=== PATIENT | female | born 1985 | race Caucasian/White ===

== ENCOUNTER 2020-05-01 23:32 | Inpatient (IN) | payer MEDICAID, SELFPAY ==
[2020-05-02] VITALS (12 sets, daily range): BP systolic 96–130; BP diastolic 52–91; PULSE 51–97; RESP 16–18; TEMP 35.8–36.7; O2SAT 97–99; BMI 31.6
--- NOTE | 2020-05-02 00:18 | ED_ITS ---
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 pain Pertinent past history: other (s/p at home 3 hour labor no PROM (water broke at delivery) GBS + no antibiotics) Onset (ago): day(s) (started yesterday but much worse today) Pain Consistency: constant Location: RLQ and suprapubic Severity: moderate Quality: cramping and aching Radiation: none Migration to: no migration Exacerbating factors: movement Relieving factors: nothing Associated symptoms: nausea and other (noted gush of darker blood yesterday x 1 no clots and did not happen again) Related Data Allergies Allergy/AdvReac Type Severity Reaction Status Date / Time No Known Allergies Allergy Unverified 03/22/20 19:33 [No Known Allergies*] eggs, dairy, wheat Allergy Unknown stomach Uncoded 11/22/19 00:00 upset Review of Systems Review of Systems Constitutional : No Weight loss, No Fever, No Chills ENT/Mouth : No sore throat, No Rhinorrhea Eyes: No Swelling, No Redness Cardiovascular : No Chest Pain, No SOB, NoEdema Respiratory : No Cough, No Sputum, No Wheezing Gastrointestinal : Positive Nausea, no Vomiting, no Diarrhea, positive abdominal Pain, No Hematochezia, No Melena Genitourinary : No Dysuria, No Urinary Frequency, No Hematuria, No Urgency , did have episode of darker brown blood ysterday but no clots seen and only 1 episode Musculoskeletal : No joint pain, No Myalgias, No Joint Swelling Skin : No Skin Lesions, No rash Neuro : No Weakness, No Numbness, No Dizziness, No Headache Psych : No Anxiety/Panic, No Depression Heme/Lymph: No Bruising, No Lymphadenopathy Endocrine : No Polyuria, No Polydipsia All other systems reviewed and are negative. Physical Exam Vital Signs: Vital Signs: Vital Signs Temp Pulse Resp BP Pulse Ox 05/02/20 02:43 98.1 F 67 18 130/91 H 05/02/20 02:00 98.0 F 68 18 122/81 05/02/20 00:29 98.0 F 60 18 115/71 98 Body Mass Index 31.6 Appearance: Alert. Oriented X3. No acute distress. Eyes: Pupils equal, round and reactive to light. ENT: Pharynx normal. Neck: Normal inspection. Neck supple. CVS: Normal heart rate and rhythm. Pulses normal. Respiratory: No respiratory distress. Breath sounds normal. Abdomen: Soft and moderate RLQ ttp, no rebound or guarding Skin: Skin warm and dry. Normal skin color. Normal skin turgor. Extremities: No lower extremity edema. No calf ttp Neuro: Oriented X 3. No motor deficit. No sensory deficit. Course Course Course Narrative: at this time no signs of sepsis, + appendicitis, zosyn ordered, surgery to admit MDM - Abdominal Pain MDM Narrative Medical decision making narrative: 34 yo female s/p home 3 hours labor (water broke at delivery) no PROM on 04/20 here with RLQ pain and nausea, she was GBS + but it was vaginal and her pain is mostly RLQ - at this time will need labs, IVF, CT scan patient REFUSES contrast aware it is indicated for infection and we could miss something she still refuses, dispo per results and findings, endometritis seems unlikely given vaginal delivery and RLQ pain Lab Data Result diagrams: 05/02/20 01:04 05/02/20 01:04 Labs: Lab Results 05/02/20 05/02/20 05/02/20 Range/Units 01:04 01:04 01:04 WBC 7.5 (4.8-10.8) X10*3/uL RBC 4.43 (4.20-5.50) X10*6/uL Hgb 11.4 L (12.0-16.0) g/dl Hct 36.3 L (37-47) % MCV 81.9 (80-98) fL MCH 25.7 L (27.0-33.0) pg MCHC 31.4 (31.0-35.0) g/dl RDW 15.4 (11.0-16.0) % Plt Count 289 (160-400) X10*3/uL MPV 11.1 (9.4-12.3) fL Immature Gran % (Auto) 0.1 (0.0-0.4) % Neut % (Auto) 61.9 (45-73) % Lymph % (Auto) 26.2 (20-40) % [place] % (Auto) 9.0 (2-11) % Eos % (Auto) 2.3 (0-4) % Baso % (Auto) 0.5 (0-2) % Lymph # (Auto) 2.0 (1.2-4.9) X10*3/uL [place] # (Auto) 0.7 (0.1-1.2) X10*3/uL Eos # (Auto) 0.2 (0.0-0.4) X10*3/uL Baso # (Auto) 0.0 (0.0-0.2) X10*3/uL Abs Immat Gran (auto) 0.01 (0.00-0.03) X10*3/uL Absolute Neuts (auto) 4.6 (2.0-8.3) X10*3/uL Absolute Nucleated RBC 0.000 (0.0-0.012) X10*3/uL Nucleated RBC % (auto) 0.0 (0.0-0.2) /100WBC PT 11.7 (10.8-13.0) SEC INR 1.0 (0.9-1.1) APTT 34.8 (24.1-38.0) SEC Sodium 140 (135-145) mmol/L Potassium 4.2 (3.3-5.1) mmol/l Chloride 109 H (96-108) mmol/L Carbon Dioxide 21 L (22-29) mmol/L Anion Gap 14 (12-20) BUN 12 (9-16) mg/dL Creatinine 0.67 (0.5-1.4) mg/dL Estim Creat Clear Calc 130.6 Estimated GFR > 60 Random Glucose 84 (60-115) mg/dL Lactic Acid (0.5-2.0) mmol/L Calcium 8.7 (8.4-10.2) mg/dL Magnesium 2.4 (1.6-2.6) mg/dL Total Bilirubin 0.5 (0.0-1.0) mg/dL Direct Bilirubin 0.2 (0.0-0.5) mg/dL AST 17 (5-31) U/L ALT 21 (0-31) U/L Alkaline Phosphatase 96 (39-117) U/L Total Protein 6.9 (6.5-8.0) g/dL Albumin 4.0 (3.5-5.0) g/dL Lipase 40 (8-78) U/L Urine Color Urine Appearance Urine pH (5.0-8.0) Ur Specific [place] (1.005-1.025) Urine Protein (NEG-TRACE) MG/DL Urine Glucose (UA) (NEG) MG/DL Urine Ketones (NEG) MG/DL Urine Blood (NEG) Urine Nitrite (NEG) Ur Leukocyte Esterase (NEG) Urine RBC (0) /HPF Urine WBC (0-4) /HPF Ur Squamous Epith Cells /LPF Urine Bacteria /LPF Coronavirus (PCR) (Negative) 05/02/20 05/02/20 05/02/20 Range/Units 01:04 03:04 03:04 WBC (4.8-10.8) X10*3/uL RBC (4.20-5.50) X10*6/uL Hgb (12.0-16.0) g/dl Hct (37-47) % MCV (80-98) fL MCH (27.0-33.0) pg MCHC (31.0-35.0) g/dl RDW (11.0-16.0) % Plt Count (160-400) X10*3/uL MPV (9.4-12.3) fL Immature Gran % (Auto) (0.0-0.4) % Neut % (Auto) (45-73) % Lymph % (Auto) (20-40) % [place] % (Auto) (2-11) % Eos % (Auto) (0-4) % Baso % (Auto) (0-2) % Lymph # (Auto) (1.2-4.9) X10*3/uL [place] # (Auto) (0.1-1.2) X10*3/uL Eos # (Auto) (0.0-0.4) X10*3/uL Baso # (Auto) (0.0-0.2) X10*3/uL Abs Immat Gran (auto) (0.00-0.03) X10*3/uL Absolute Neuts (auto) (2.0-8.3) X10*3/uL Absolute Nucleated RBC (0.0-0.012) X10*3/uL Nucleated RBC % (auto) (0.0-0.2) /100WBC PT (10.8-13.0) SEC INR (0.9-1.1) APTT (24.1-38.0) SEC Sodium (135-145) mmol/L Potassium (3.3-5.1) mmol/l Chloride (96-108) mmol/L Carbon Dioxide (22-29) mmol/L Anion Gap (12-20) BUN (9-16) mg/dL Creatinine (0.5-1.4) mg/dL Estim Creat Clear Calc Estimated GFR Random Glucose (60-115) mg/dL Lactic Acid 0.5 (0.5-2.0) mmol/L Calcium (8.4-10.2) mg/dL Magnesium (1.6-2.6) mg/dL Total Bilirubin (0.0-1.0) mg/dL Direct Bilirubin (0.0-0.5) mg/dL AST (5-31) U/L ALT (0-31) U/L Alkaline Phosphatase (39-117) U/L Total Protein (6.5-8.0) g/dL Albumin (3.5-5.0) g/dL Lipase (8-78) U/L Urine Color STRAW Urine Appearance CLEAR Urine pH 6.0 (5.0-8.0) Ur Specific [place] 1.015 (1.005-1.025) Urine Protein NEG (NEG-TRACE) MG/DL Urine Glucose (UA) NEG (NEG) MG/DL Urine Ketones NEG (NEG) MG/DL Urine Blood 3+ H (NEG) Urine Nitrite NEG (NEG) Ur Leukocyte Esterase TRACE H (NEG) Urine RBC 0-2 (0) /HPF Urine WBC 0-2 (0-4) /HPF Ur Squamous Epith Cells 1+ /LPF Urine Bacteria TRACE /LPF Coronavirus (PCR) NEGATIVE (Negative) Critical Care Time Critical Care Time Critical Care Time: Yes Total Critical Care Time: 35 Attestation: IVF, CT scan, consult to surgery, admit for appendicitis. I personally attest to this time spent taking care of the patient Discharge Plan Discharge Clinical Impression: Acute appendicitis Qualifiers: Acute appendicitis type: with localized peritonitis Appendicitis gangrene presence: without gangrene Appendicitis perforation presence: without perforation Appendicitis abscess presence: without abscess Qualified Code(s): K35.30 - Acute appendicitis with localized peritonitis, without perforation or gangrene Patient Disposition: Admitted As Inpatient [facility] Past Medical History Attestation statement: The following information was validated with the patient. Medical History No known health problems Social History Social History Alcohol intake: never Smoking Status: Never smoker Smoked in Last 30 Days: No Advance Directives: No
--- NOTE | 2020-05-02 00:29 | CT_ITS ---
EXAMINATION: CT ABDOMEN AND PELVIS WITHOUT CONTRAST CLINICAL INFORMATION: Right lower quadrant pain COMPARISON: None TECHNIQUE: Multidetector volumetric imaging was performed from the superior aspect of the liver through the pubic symphysis. Sagittal and coronal reformatted images were obtained on the technologist's workstation. This CT examination was performed using dose optimization techniques as appropriate, variously including the following: *Automated exposure control *Adjustment of mA and/or kV according to patient size (this includes techniques or standardized protocols for targeted exams where dose is matched to indication/reason for exam; i.e. extremities or head) *Use of iterative reconstruction technique DLP: 688 mGy-cm FINDINGS: LUNG BASES: The visualized lung bases are unremarkable. LIVER, GALLBLADDER, AND BILIARY TREE: The liver is normal in size, shape, and attenuation. No focal hepatic lesion or biliary ductal dilatation is present. The gallbladder is unremarkable with no evidence of radiopaque gallstones, gallbladder wall thickening, or obvious pericholecystic inflammatory changes. PANCREAS: Unremarkable. SPLEEN: Unremarkable. ADRENAL GLANDS: Unremarkable. KIDNEYS AND URETERS: The kidneys are normal in size, shape, and attenuation. No hydronephrosis, hydroureter, or calculi seen. No perinephric stranding. BLADDER: Unremarkable. GASTROINTESTINAL TRACT: The stomach is unremarkable. Normal caliber small bowel. There is no obstruction. Fecalization is seen at the distal ileum, suggesting slow transit. Inflammatory changes are seen at the cecum, surrounding the base of the appendix. The appendix is dilated approximately measuring 1.2 cm as seen on series 6 image 31. There is no free air. There is no fluid collection. The remainder of the colon is unremarkable. ABDOMINAL WALL: Fat-containing umbilical hernia. Small right periumbilical hernia and small supraumbilical hernias also containing fat. Mild inflammation of the right periumbilical hernia. LYMPH NODES: Normal. VASCULAR: Unremarkable. PELVIC VISCERA: The uterus and adnexa are unremarkable. OSSEOUS STRUCTURES: No acute or suspicious osseous abnormality. CT/CT abdomen pelvis wo con IMPRESSION: Abnormal appearance of the appendix with dilatation at the base of the appendix and adjacent inflammation of the fat, consistent with appendicitis.
[2020-05-02] MEDS: 0.9 % Sodium Chloride 1,000 ML 999 ML IVCONT (01:10)
[2020-05-02 01:12] LABS: Basophils Percent Auto 0.5 % (0-2); Eosinophils Absolute Auto 0.2 X10*3/uL (0.0-0.4); Eosinophils Percent Auto 2.3 % (0-4); Hematocrit 36.3 % (37-47); Hemoglobin 11.4 g/dl (12.0-16.0); Imm Gran Abs Auto 0.01 X10*3/uL (0.00-0.03); Imm Gran Pct Auto 0.1 % (0.0-0.4); Lymphocytes Percent Auto 26.2 % (20-40); MANUAL DIFF FLAG NO; Mean Corpuscular HGB Conc 31.4 g/dl (31.0-35.0); Mean Corpuscular Hemoglobin 25.7 pg (27.0-33.0); Mean Corpuscular Volume 81.9 fL (80-98); Mean Platelet Volume 11.1 fL (9.4-12.3); Monocytes Absolute Auto 0.7 X10*3/uL (0.1-1.2); Neutrophils Absolute Auto 4.6 X10*3/uL (2.0-8.3); Neutrophils Percent Auto 61.9 % (45-73); Platelet Count 289 X10*3/uL (160-400); Red Blood Count 4.43 X10*6/uL (4.20-5.50); Red Cell Distribution Width 15.4 % (11.0-16.0); White Blood Count 7.5 X10*3/uL (4.8-10.8)
--- NOTE | 2020-05-02 01:13 | PC.NURSE ---
20g right ac pt neftaly well no complications, labs sent. pt refused pain medication and nausea medication at this time.
[2020-05-02 01:20] LABS: Prothrombin Time 11.7 SEC (10.8-13.0)
[2020-05-02 01:22] LABS: Partial Thromboplastin Time 34.8 SEC (24.1-38.0)
[2020-05-02 01:37] LABS: Lactic Acid 0.5 mmol/L (0.5-2.0)
[2020-05-02 01:41] LABS: Alanine Aminotransferase 21 U/L (0-31); Alkaline Phosphatase 96 U/L (39-117); Anion Gap 14 (12-20); Aspartate Amino Transferase 17 U/L (5-31); Bilirubin Direct 0.2 mg/dL (0.0-0.5); Bilirubin Total 0.5 mg/dL (0.0-1.0); Blood Urea Nitrogen 12 mg/dL (9-16); Calcium 8.7 mg/dL (8.4-10.2); Carbon Dioxide 21 mmol/L (22-29); Chloride 109 mmol/L (96-108); Creatinine Clr Calc Pharmacy 130.6; Estimated Glomerular Filt Rate > 60; Glucose Random 84 mg/dL (60-115); Lipase 40 U/L (8-78); Magnesium 2.4 mg/dL (1.6-2.6); Potassium 4.2 mmol/l (3.3-5.1); Sodium 140 mmol/L (135-145); Total Protein 6.9 g/dL (6.5-8.0)
--- NOTE | 2020-05-02 02:22 | PC.NURSE ---
pt is breast feeding the baby at this time. ok with paras huertas and dr darnell for pt to feed in her car vs bringing a 2 week old into the hospital.
--- NOTE | 2020-05-02 02:54 | PC.NURSE ---
pt returned from breast feeding her new born. pt has ivf infusing.
[2020-05-02 03:13] LABS: Glucose Urine UA NEG (NEG); Leukocyte Esterase Urine TRACE (NEG); Nitrite Urine NEG (NEG); Specific Gravity - Urine 1.015 (1.005-1.025); Urine Blood 3+ (NEG); Urine Ketones NEG (NEG); Urine Protein NEG (NEG-TRACE)
[2020-05-02 03:14] LABS: Appearance Urine CLEAR; Color Urine STRAW
[2020-05-02] MEDS: Piperacillin Sodium/Tazobactam 3.375 GM in 0.9 % Sodium Chloride 50 ML IV ×3 (03:17→18:30)
[2020-05-02 03:38] LABS: Bacteria Urine TRACE /LPF; RBC Urine 0-2 /HPF (0); Squamous Epithelial Cell Urine 1+ /LPF; WBC Urine 0-2 /HPF (0-4)
[2020-05-02 04:08] LABS: SARS COV2 PCR INHOUSE NEGATIVE (Negative)
--- NOTE | 2020-05-02 07:00 | PC.NURSE ---
RECEIVED REPORT FROM MALCOLM GLASS PT IS CURRENTLY RESTING IN THE STRETCHER WITH THE AT HER SIDE, PT IS BREAST FEEDING THE BABY, PT DOES NOT WANT ANY MEDICATIONS AT THIS TIME. PT IS AWAITING SURGERY CONSULT. ALSO AT BEDSIDE.
--- NOTE | 2020-05-02 08:24 | PM.HPGS ---
History of Present Illness History of Present Illness Chief complaint: ABD PAIN Narrative: Alison Oliva is a 34 year old female who is about 2 weeks following home delivery and who developed right lower quadrant abdominal pain about a day and a half ago. The pain was persistent and severe. She reports that it seems to be somewhat better now. She has been taking only acetaminophen for pain. She does not report fever or chills. Because of the persistent severe pain, she came to the emergency room last night for further evaluation. White blood count was normal at 7.2. A CT scan of the abdomen and pelvis was obtained and was consistent with early uncomplicated appendicitis. Review of Systems Constitutional: Constitutional: Denies chills and Denies fever(s) Cardiovascular: Cardiovascular: Denies chest pain, Denies palpitations and Denies dyspnea Respiratory: Respiratory: Denies cough and Denies dyspnea Gastrointestinal: Gastrointestinal: Reports as per HPI Endocrine: Endocrine: Denies palpitations PMFSH Past Medical History Medical History No known health problems Social History Social History Alcohol intake: never Smoking Status: Never smoker Smoked in Last 30 Days: No Advance Directives: No Meds Allergies Allergy/AdvReac Type Severity Reaction Status Date / Time No Known Allergies Allergy Unverified 03/22/20 19:33 [No Known Allergies*] eggs, dairy, wheat Allergy Unknown stomach Uncoded 11/22/19 00:00 upset Home Medications Medication Instructions Recorded Confirmed Type No Known Home Meds 05/02/20 05/02/20 History Physical Exam Vital Signs: Vital Signs: Vital Signs Temp Pulse Resp BP Pulse Ox 05/02/20 06:00 98.1 F 51 16 98 05/02/20 04:00 98.1 F 97 16 108/69 98 05/02/20 02:43 98.1 F 67 18 130/91 H 05/02/20 02:00 98.0 F 68 18 122/81 05/02/20 00:29 98.0 F 60 18 115/71 98 Body Mass Index 31.6 Const: General: cooperative, no acute distress and alert HENMT: Head: Yes normocephalic and Yes atraumatic Eyes: General: appearance normal, both eyes and all related structures Neck: Neck: Yes full ROM and Yes trachea midline Resp: Effort & Inspection: normal respiratory effort Auscultation: clear to auscultation bilaterally Cardio: Rate: regular rate Rhythm: regular rhythm GI: Other: Soft, nondistended, focally tender right lower quadrant with mild rebound, no palpable masses Rectal Exam - Female: deferred Skin: Other: Normal color, warm and dry Psych: Insight: Good insight present (Psych) Judgement: Good judgement present (Psych) Results Results Labs: Short CBC 05/02/20 Range/Units 01:04 WBC 7.5 (4.8-10.8) X10*3/uL Hgb 11.4 L (12.0-16.0) g/dl Hct 36.3 L (37-47) % Plt Count 289 (160-400) X10*3/uL BMP 05/02/20 01:04 Sodium 140 Potassium 4.2 Chloride 109 H Carbon Dioxide 21 L BUN 12 Creatinine 0.67 Calcium 8.7 Liver Function 05/02/20 Range/Units 01:04 Total Bilirubin 0.5 (0.0-1.0) mg/dL Direct Bilirubin 0.2 (0.0-0.5) mg/dL AST 17 (5-31) U/L ALT 21 (0-31) U/L Alkaline Phosphatase 96 (39-117) U/L Albumin 4.0 (3.5-5.0) g/dL Urine 05/02/20 Range/Units 03:04 Urine Color STRAW Urine Appearance CLEAR Urine pH 6.0 (5.0-8.0) Ur Specific [place] 1.015 (1.005-1.025) Urine Protein NEG (NEG-TRACE) MG/DL Urine Glucose (UA) NEG (NEG) MG/DL Assessment and Plan (1) Acute appendicitis: Qualifiers: Acute appendicitis type: with localized peritonitis Appendicitis abscess presence: without abscess Appendicitis gangrene presence: without gangrene Appendicitis perforation presence: without perforation Qualified Code(s): K35.30 - Acute appendicitis with localized peritonitis, without perforation or gangrene Status: Acute This is a 34-year-old female presenting with history, exam and imaging findings consistent with early acute appendicitis. We discussed treatment options including a trial of antibiotic therapy at, and surgery, laparoscopic or open appendectomy. We reviewed that antibiotic therapy is successful initially about 80% of the time and that when successful, recurrent appendicitis can occur. We discussed the technique of laparoscopic appendectomy and did potential need to convert to open appendectomy and reviewed risks of either procedure at which include error in diagnosis, infection, bleeding, DVT and PE, appendiceal stump leak. She has chosen initial treatment with antibiotic therapy. She understands that she will be observed in the hospital and that if there is any worsening or if there is no significant improvement over the next 24 hours or so, surgery will be recommended.
--- NOTE | 2020-05-02 08:39 | PC.NURSE ---
VITAL SIGNS DIFFERED, PT, AND SLEEPING PT'S COLOR IS PINK SKIN DRY
--- NOTE | 2020-05-02 10:39 | PC.NURSE ---
PT RESTING BREAST FEEDING HER NEW BORN ON THE RIGHT SIDE, BP SLIGHTLY LOWER DUE TO BEING ON HER SIDE 96/59, PT STILL DOES NOT WANT ANYTHING FOR PAIN CONTROL. PT WILL BE ADMITTED THROUGH SURGERY
[2020-05-02] MEDS: Dextrose 5 % and Lactated Ring 1,000 ML 100 ML IVCONT (11:18)
--- NOTE | 2020-05-02 13:00 | PC.NURSE ---
called med/surg awaiting call back for report
--- NOTE | 2020-05-02 13:21 | PC.NURSE ---
report given to med/medical/surgery registered nurse, but the nurse requested that we wait to sent the pt upstairs until the returns to the ed
--- NOTE | 2020-05-02 14:43 | PC.NURSE ---
fuad rn at bedside speaking to pt at this time
--- NOTE | 2020-05-02 15:15 | PC.NURSE ---
Spoke with patient and spouse about request to have mom and dad board with 10 day old during patient's hospitalization for possible appendicitis. This sign writer letterer or painter shared concern for health of 10 day old given hospital setting and child less than 3 months of age being prone to infection/sepsis. Both patient and spouse verbalize (+) understanding of risk of infection to while in an acute care setting. However, patient expressing concern about baby's feeding needs. This sign writer letterer or painter offered option of supporting patient in pumping breastmilk and facilitating spousal pick ups to support breastmilk feeding at home. Patient appreciative of offer but shared her concern that the will likely not accept a bottle nipple as none of her previous 3 children did and it caused significant difficulty for them. She would like to avoid such issues with this baby. Various other options discussed with goal of supporting this family, including possible transfer to another facility. However, similar challenges would likely be faced and has the capacity to care for the patient. Patient prefers to stay at . Patient is very naturopathic and was thrilled to have had a home delivery with this child, as she wanted to avoid the hospital. Patient expresses sadness and frustration that she is ending up hospitalized after all. Emotional support provided to patient and spouse with (+) effect, patient smiling and engaged. This sign writer letterer or painter consulted Karrie Shanks RN Director of the [facility], who was able to provide patient with a hospital grade double breast pump as patients breasts were noted to be engorged despite infant having latched and eaten well. The patient demonstrated good use of the pump and was able to pump 6 oz of breastmilk with reported relief of engorged feeling in breasts. Meanwhile, this sign writer letterer or painter was able to coordinate an isolated admission for this patient, her spouse, and the . This option was presented to the patient and spouse and they graciously accepted. Again, the risk of infection to the related to being in an acute care setting of a hospital was reviewed with both patents in the presence of this sign writer letterer or painter and Karrie Shanks RN. Both patients verbalized a (+) understanding of risk of illness to the and clearly verbalize they will accept the risk in the presence of this sign writer letterer or painter and Karrie Shanks RN. With the plan for the patient's spouse and to board with the patient for her hospital stay, a bassinet was obtained for the child's safety. Both parents were educated by Karrie and this sign writer letterer or painter that the baby should not be allowed to sleep in the hospital bed with either parent due to the risk of fall/SIDS. Both parents verbalized (+) understanding. Dad was also educated to minimize in and outs from the room so as to facilitate isolation with the goal of infection control. Both patient and spouse verbalized (+) understanding. The dietary office and the patient/spouse were notified that we will provide a second meal tray for the spouse during the patient's hospital stay, so as to limit entry and exit of the spouse from the room. Both patient and spouse report they have enough diapers, clothing, and care items for the baby so as not to require anything from the hospital or need to go home for anything. It was explained to both parents that the baby cannot be left alone in the care of mom as she is an active patient at and should she experience an emergency, we need a care provider present for the baby. Both parents verbalized (+) understanding. maritime officer Cuca Barney, Renetta Watson, Fide Guevara, Karrie Shanks, Chapo Manning, and Henrique Montana are aware of the plan of care for this patient and family. Of note, the patient initially declined surgical options but after conversing with this sign writer letterer or painter and Karrie Shanks, MARIA LUISA, she is asking appropriate plan of care questions and may consider operative intervention as a means to shortening her length of stay. This sign writer letterer or painter offered to call surgical team to speak with patient at this time. Patient declined stating she would like to think about things a bit longer and will plan to discuss plan of care when surgery staff does afternoon rounds (planned as per patient). This sign writer letterer or painter provided patient and with my business card and cell phone number. They are encouraged to call with any questions or needs and verb (+) understadning. Full report given to Navin Solis RN supervisor slashing department and Fide Guevara collection support specialist S3. Plan for Fide Guevara to advocate for an OBGYN consult with the surgical team. This sign writer letterer or painter will check in on patient and family during their stay.
--- NOTE | 2020-05-02 17:40 | PM.EVENT ---
Event Note Event Note: She continues to reports decreasing pain, RLQ. Hungry. Alert, NAD Abdomen is soft, focal tenderness to deep palpation inferior RLQ Discussed options for continued antibiotic treatment vs proceeding with surgery with pt. and . She prefers to continue antibiotic therapy at this time. Will advance to regular diet, then keep NPO after midnight for reassessment in early AM. Also discussed OB eval as she had a recent home delivery. She does not feel it is needed, but agrees and requests Ping De Leon CNM, if she is available.
[2020-05-03] VITALS (17 sets, daily range): BP systolic 108–130; BP diastolic 52–82; PULSE 50–87; RESP 12–20; TEMP 36.1–36.8; O2SAT 94–99; BMI 31.6
[2020-05-03] MEDS: Piperacillin Sodium/Tazobactam 3.375 GM in 0.9 % Sodium Chloride 50 ML IV ×2 (00:22→06:32)
[2020-05-03] MEDS: Dextrose 5 % and Lactated Ring 1,000 ML 100 ML IVCONT ×2 (00:23→10:10)
[2020-05-03 06:39] LABS: MANUAL DIFF FLAG NO
[2020-05-03 06:50] LABS: Basophils Percent Auto 0.7 % (0-2); Eosinophils Absolute Auto 0.2 X10*3/uL (0.0-0.4); Eosinophils Percent Auto 3.3 % (0-4); Hematocrit 36.8 % (37-47); Hemoglobin 11.5 g/dl (12.0-16.0); Imm Gran Abs Auto 0.01 X10*3/uL (0.00-0.03); Imm Gran Pct Auto 0.2 % (0.0-0.4); Lymphocytes Absolute Auto 1.6 X10*3/uL (1.2-4.9); Lymphocytes Percent Auto 26.4 % (20-40); Mean Corpuscular HGB Conc 31.3 g/dl (31.0-35.0); Mean Corpuscular Hemoglobin 25.8 pg (27.0-33.0); Mean Corpuscular Volume 82.5 fL (80-98); Mean Platelet Volume 11.2 fL (9.4-12.3); Monocytes Absolute Auto 0.6 X10*3/uL (0.1-1.2); Monocytes Percent Auto 9.3 % (2-11); Neutrophils Absolute Auto 3.7 X10*3/uL (2.0-8.3); Neutrophils Percent Auto 60.1 % (45-73); Platelet Count 260 X10*3/uL (160-400); Red Blood Count 4.46 X10*6/uL (4.20-5.50); Red Cell Distribution Width 15.2 % (11.0-16.0); White Blood Count 6.1 X10*3/uL (4.8-10.8)
--- NOTE | 2020-05-03 08:18 | PM.PNGS ---
Subjective Subjective Interval history: Had RLQ pain and tenderness overnight. Occasionally radiating to her right lower back. Wants to proceed with surgery. Last PO intake 8PM yesterday. <IMTIAZ Ludwig Last Filed: 05/03/20 08:23> Physical Exam Vital Signs: Vital Signs: Vital Signs Temp Pulse Resp BP Pulse Ox 05/03/20 06:51 97.1 F 58 18 117/77 99 05/03/20 04:00 18 05/03/20 00:00 97.5 F 67 17 110/52 L 97 05/02/20 23:31 97.5 F 66 17 110/52 L 98 05/02/20 19:53 96.5 F L 60 18 110/79 97 05/02/20 16:37 98.1 F 60 18 116/74 99 05/02/20 16:00 18 05/02/20 14:59 59 18 126/80 98 05/02/20 13:02 16 05/02/20 10:38 74 16 96/59 L 98 Body Mass Index 31.6 <Tara Durbin PA-C Last Filed: 05/03/20 08:23> Const: General: comfortable, no acute distress and alert <IMTIAZ Ludwig Last Filed: 05/03/20 08:23> Orientation/consciousness: patient oriented x3 <IMTIAZ Ludwig Last Filed: 05/03/20 08:23> Eyes: Sclerae: sclerae normal <IMTIAZ Ludwig Last Filed: 05/03/20 08:23> Resp: Effort & Inspection: normal respiratory effort <IMTIAZ Ludwig Last Filed: 05/03/20 08:23> GI: Palpation (GI): Soft to palpation and Tenderness to palpation present (GI) in the RLQ; with no rebound tenderness and Rovsing's sign negative <IMTIAZ Ludwig Last Filed: 05/03/20 08:23> Skin: Other: normal color, warm and dry <IMTIAZ Ludwig Last Filed: 05/03/20 08:23> Neuro: General: patient oriented x3 <Tara Durbin PA-C - Last Filed: 05/03/20 08:23> Progress Note: A&P Assessment and plan (1) Acute appendicitis: Status: Acute <IMTIAZ Ludwig Last Filed: 05/03/20 08:23> Assessment and Plan: Initially felt improved with nonoperative management but now with more RLQ pain and tenderness. Wants to proceed with surgery. VSS, afebrile. WBC remains normal. Will add onto OR schedule for today for laparoscopic possible open appendectomy- risks discussed again today with patient by Dr. Tate. Patient agrees to proceed. <Tara Durbin PA-C - Last Filed: 05/03/20 08:23> Fall Risk Details Current Medications: Current Medications Generic Name Dose Route Start Last Admin Trade Name Freq PRN Reason Stop Dose Admin Acetaminophen 650 mg 05/02/20 13:15 Acetaminophen 325 Mg Tablet PO Q6H PRN Pain, Mild (Pain Scale 1-3) Dextrose/Lactated Ringer's 1,000 mls @ 100 mls/hr 05/02/20 10:50 05/03/20 00:23 D5lr IVCONT 100 mls/hr .Q10H RACHEL Administration Piperacillin Sod/Tazobactam 50 mls @ 100 mls/hr 05/02/20 18:00 05/03/20 06:32 Sod 3.375 gm/ Sodium Chloride IV 100 mls/hr Q6H RACHEL Administration Cefotetan Disodium 2 gm in 50 mls @ 100 mls/hr 05/03/20 12:00 Cefotan IV 05/03/20 12:29 PREOP ONE Morphine Sulfate 4 mg 05/02/20 13:15 Morphine Sulfate 4 Mg/Ml Cartridge IVPUSH Q3H PRN Pain, Severe (Pain Scale 7-10) Ondansetron HCl 4 mg 05/02/20 13:15 Ondansetron Hcl 4 Mg/2 Ml Vial IVPUSH Q8H PRN Nausea and Vomiting Pharmacy Consult 1 each 05/02/20 02:43 Consult Rx Perform Med Rec MISCELLANE ONCE PRN Consult order Sodium Chloride 3 ml 05/02/20 13:15 05/03/20 03:20 0.9 % Sodium Chloride Flush 3 Ml Syringe IVFLUSH Not Given QSHIFT RACHEL <IMTIAZ Ludwig Last Filed: 05/03/20 08:23> Time Spent With Patient Time: Total time spent is greater than 50% in coordination of care (as documented) at patient's floor/unit and/or counseling patient: <IMTIAZ Ludwig Last Filed: 05/03/20 08:23> Time with patient: 15 - 24 minutes <IMTIAZ Ludwig Last Filed: 05/03/20 08:23>
--- NOTE | 2020-05-03 10:39 | P.CONOB_ITS ---
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 Patient has no fever no vaginal bleeding patient is 10 days post is breast feeding delivered at home smooth with no complication no history of per own rupture of membranes hemorrhage or retained placenta. 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 The possibility of endometritis is unlikely for the following reasons: no leukocytosis, fever, no uterine tenderness, no history of hemorrhage & CT scan showed normal uterus and abnormal appendix. In case there is an element of endometritis the recommended treatment for endometritis is clindamycin and gentamicin, but Zosyn is one of the alternative antibiotic options . If the patient does not improve after appendectomy will reconsider the diagnosis of endometritis and possibly switching antibiotics. Meanwhile vitamin 1 tablet p.o. q.d. and offered the patient a visit in our office patient will call and arrange for the appointment.
--- NOTE | 2020-05-03 11:51 | MHC.SHP ---
Pre-Procedural Eval Section A The patient is an INPATIENT: Yes Section B Chief Complaint: Acute Appendicitis Allergies: Allergies Allergy/AdvReac Type Severity Reaction Status Date / Time No Known Allergies Allergy Verified 05/02/20 17:02 [No Known Allergies*] eggs, dairy, wheat Allergy Unknown stomach Uncoded 05/02/20 17:01 upset Plan Diagnosis/Plan: Unchanged Patient has been examined and remains a candidate for the planned procedure
--- NOTE | 2020-05-03 12:18 | PC.NURSE ---
moderate amount of brown blodd on her mykel pad. post 2 weeks and is breast feeding. anesthesia aware.
--- NOTE | 2020-05-03 12:22 | P.CONAN_ITS ---
[facility] Past Medical History Medical History No known health problems Social History Social History Household Members: Family Housing: House Do you presently have visiting nurse or other home services: No Alcohol intake: never Smoking Status: Never smoker Smoked in Last 30 Days: No Use of substances other than those prescribed or required for medical reasons: No Have you been hit, kicked, punched, or otherwise hurt by someone within the past year? If so, by whom?: No Do you feel safe in your current relationship?: Yes Is there a partner from a previous relationship who is making you feel unsafe now?: No Are you made to feel afraid or neglected: No Advance Directives: No Do you have thoughts of harming others: None Do you have a plan to hurt others: No Plan Recently lost weight without trying: No Meds Allergies Allergy/AdvReac Type Severity Reaction Status Date / Time No Known Allergies Allergy Verified 05/02/20 17:02 [No Known Allergies*] eggs, dairy, wheat Allergy Unknown stomach Uncoded 05/02/20 17:01 upset Home Medications Medication Instructions Recorded Confirmed Type No Known Home Meds 05/02/20 05/02/20 History Exam Exam Date and Time: May 03, 2020 1222 Height,Weight and Vital Signs: Height 5 ft 5 in Weight 86.183 kg Last Vital Signs Temp 98.2 F 05/03/20 12:00 Pulse 62 05/03/20 12:00 Resp 16 05/03/20 12:00 BP 130/82 05/03/20 12:00 Pulse Ox 97 05/03/20 12:00 Pertinent Lab Results Pertinent Lab Results: Laboratory Tests 05/02/20 05/02/20 05/02/20 01:04 01:04 01:04 WBC 7.5 RBC 4.43 Hgb 11.4 L Hct 36.3 L MCV 81.9 MCH 25.7 L MCHC 31.4 RDW 15.4 Plt Count 289 MPV 11.1 Immature Gran % (Auto) 0.1 Neut % (Auto) 61.9 Lymph % (Auto) 26.2 [place] % (Auto) 9.0 Eos % (Auto) 2.3 Baso % (Auto) 0.5 Lymph # (Auto) 2.0 [place] # (Auto) 0.7 Eos # (Auto) 0.2 Baso # (Auto) 0.0 Abs Immat Gran (auto) 0.01 Absolute Neuts (auto) 4.6 Absolute Nucleated RBC 0.000 Nucleated RBC % (auto) 0.0 PT 11.7 INR 1.0 APTT 34.8 Sodium 140 Potassium 4.2 Chloride 109 H Carbon Dioxide 21 L Anion Gap 14 BUN 12 Creatinine 0.67 Estim Creat Clear Calc 130.6 Estimated GFR > 60 Random Glucose 84 Lactic Acid Calcium 8.7 Magnesium 2.4 Total Bilirubin 0.5 Direct Bilirubin 0.2 AST 17 ALT 21 Alkaline Phosphatase 96 Total Protein 6.9 Albumin 4.0 Lipase 40 Urine Color Urine Appearance Urine pH Ur Specific [place] Urine Protein Urine Glucose (UA) Urine Ketones Urine Blood Urine Nitrite Ur Leukocyte Esterase Urine RBC Urine WBC Ur Squamous Epith Cells Urine Bacteria Coronavirus (PCR) 05/02/20 05/02/20 05/02/20 01:04 03:04 03:04 WBC RBC Hgb Hct MCV MCH MCHC RDW Plt Count MPV Immature Gran % (Auto) Neut % (Auto) Lymph % (Auto) [place] % (Auto) Eos % (Auto) Baso % (Auto) Lymph # (Auto) [place] # (Auto) Eos # (Auto) Baso # (Auto) Abs Immat Gran (auto) Absolute Neuts (auto) Absolute Nucleated RBC Nucleated RBC % (auto) PT INR APTT Sodium Potassium Chloride Carbon Dioxide Anion Gap BUN Creatinine Estim Creat Clear Calc Estimated GFR Random Glucose Lactic Acid 0.5 Calcium Magnesium Total Bilirubin Direct Bilirubin AST ALT Alkaline Phosphatase Total Protein Albumin Lipase Urine Color STRAW Urine Appearance CLEAR Urine pH 6.0 Ur Specific [place] 1.015 Urine Protein NEG Urine Glucose (UA) NEG Urine Ketones NEG Urine Blood 3+ H Urine Nitrite NEG Ur Leukocyte Esterase TRACE H Urine RBC 0-2 Urine WBC 0-2 Ur Squamous Epith Cells 1+ Urine Bacteria TRACE Coronavirus (PCR) NEGATIVE 05/03/20 06:30 WBC 6.1 RBC 4.46 Hgb 11.5 L Hct 36.8 L MCV 82.5 MCH 25.8 L MCHC 31.3 RDW 15.2 Plt Count 260 MPV 11.2 Immature Gran % (Auto) 0.2 Neut % (Auto) 60.1 Lymph % (Auto) 26.4 [place] % (Auto) 9.3 Eos % (Auto) 3.3 Baso % (Auto) 0.7 Lymph # (Auto) 1.6 [place] # (Auto) 0.6 Eos # (Auto) 0.2 Baso # (Auto) 0.0 Abs Immat Gran (auto) 0.01 Absolute Neuts (auto) 3.7 Absolute Nucleated RBC 0.000 Nucleated RBC % (auto) 0.0 PT INR APTT Sodium Potassium Chloride Carbon Dioxide Anion Gap BUN Creatinine Estim Creat Clear Calc Estimated GFR Random Glucose Lactic Acid Calcium Magnesium Total Bilirubin Direct Bilirubin AST ALT Alkaline Phosphatase Total Protein Albumin Lipase Urine Color Urine Appearance Urine pH Ur Specific [place] Urine Protein Urine Glucose (UA) Urine Ketones Urine Blood Urine Nitrite Ur Leukocyte Esterase Urine RBC Urine WBC Ur Squamous Epith Cells Urine Bacteria Coronavirus (PCR) Airway Mallampati Class: II TM Dist: >3cm Neck ROM: Full Assessment and Plan Assessment Anesthesia Assessment: Anesthesia Plan Discussed and Chart Reviewed Final Anesthetic Review NPO: Yes ASA Class: I Final Preanesthetic Review: No Changes in Pt Med Stat, Meds/Allgs Chart Reviewed, Consent Obtained/Reviewed and Anes Risks/Benef Reviewed Patient Risk: Low Procedure Risk: Low Assessment/Block/Sedation in SS: Assess/Block/Sedation-SS Anesthetic Plan Anesthetic Plan: GA Disposition: Standard PACU
[2020-05-03] MEDS: ondansetron HCL 4 MG/2 ML VIAL IVPUSH (14:46)
[2020-05-03] MEDS: fentaNYL citrate/PF 100 MCG/2 ML VIAL 50 MCG IVPUSH (14:53)
--- NOTE | 2020-05-03 16:54 | P.OP_ITS ---
Operative Note Operative Note Narrative: Preoperative diagnosis: Acute appendicitis Postoperative diagnosis: Same Procedure: Laparoscopic appendectomy Certified Ophthalmic Technologist: Tara Durbin PA-C Anesthesia: General endotracheal Specimen: Appendix Estimated blood loss: 10 cc Other findings: None Immediate complications: None Indications: This is a 34-year-old who is about 11 days and has a 2 day history of right lower quadrant abdominal pain. She was admitted yesterday and initially elected antibiotic treatment. She was improving with antibiotic treatment, but had an increase in pain this morning and elected to proceed with appendectomy. CT scan and examination findings are consistent with acute appendicitis Procedure in detail: With the patient in the supine position after induction of adequate general anesthesia, time-out procedure was performed. 2 g of cefotetan were infused for antibiotic prophylaxis. The abdomen was prepped with ChloraPrep and was draped sterilely. Each trocar site was infiltrated with local anesthetic prior to making incisions. An umbilical hernia was present. Incision was made through the skin of the umbilicus and was carried down to the hernia defect. The fascial margin was dissected free circumferentially and holding sutures of 0 Polysorb were placed on either side. The Medeiros trocar was inserted and the abdomen was insufflated with carbon dioxide to a pressure of 15 mm of mercury. The 0 degree 5 mm laparoscopic was inserted and the peritoneal cavity was visualized. No abnormalities were noted initially. 5 mm trocars were positioned, 1 laterally in the left lower quadrant and 1 a few cm above the pubis in the midline. She was rotated slightly left side down. Blunt graspers were inserted and the small bowel was reflected medially. The cecum was identified and elevated. The base of the appendix was identified and gently grasped and followed distally. The appendix appeared mildly inflamed. The blunt graspers and removed from the left lower quadrant port and the LigaSure or 5 mm laparoscopic instrument was inserted and was employed to divide the mesoappendix moving from distal to proximal. Good hemostasis was obtained. Once the base of the appendix was dissected free, the Endo JOSH 30 mm purple load was inserted through the Rogerio trocar after moving the laparoscopic to the left lower quadrant port. The Endo JOSH jaws were angled and placed across the base of the appendix. The jaws were closed and positioning was confirmed ensuring that no extraneous tissue was included. The device was then fired, opened and removed. Complete division of the appendix at the junction with the cecum and was not achieved with approximately 1-2 mm remaining. A 2nd at purple load was obtained and the Endo JOSH was again inserted, angled and placed across the remaining it tissue including the corner of the staple line on the cecal side. The device again was closed and jaws were inspected to ensure no extraneous tissues were included. The device was then fired, opened and removed. The specimen pouch was then inserted through the Rogerio trocar. The appendix was placed into the pouch and the pouch in has son were removed along with the appendix. The Medeiros was then reinserted and the laparoscopic was placed back through it. The cecum was inspected. The staple line was intact. There was no bleeding. The right lower quadrant was irrigated with saline solution and irrigant was suctioned out. 5 mm trocars were removed under direct vision. No bleeding was noted from the trocar sites. Insufflation was then discontinued and gas was allowed to escape from the peritoneal cavity. The Rogerio trocar was removed. Fascial margins at the umbilical hernia site where then inspected. A 0 Tycron suture was employed to close the hernia defect using 2 [id number] sutures. Additional local anesthetic was infiltrated into the trocar sites including the hernia repair site. Skin incisions were then closed with subcuticular sutures of 4-0 Polysorb. Steri-Strips gauze and adhesive dressings were applied. Sponge and sharp counts were correct. She tolerated the procedure well and was transported to the recovery room in stable condition. There were no immediate complications.
[2020-05-03] MEDS: Lactated Ringers 1,000 ML 80 ML IVCONT (16:59)
--- NOTE | 2020-05-03 19:41 | PC.NURSE ---
P-patient concern if it is ok to brestfeed her baby,Fentanyl was given last in PACU at 1445 I-dr. GODFREY notified of the above E-Ok to brestfeed ,patient notified
[2020-05-03] MEDS: Ibuprofen 400 MG TABLET PO (21:27)
[2020-05-04] VITALS: BP 105/67; PULSE 52; RESP 18; TEMP 36.1; O2SAT 96
[2020-05-04 04:22] VITALS: BP 104/68; PULSE 58; RESP 18; TEMP 36.3; O2SAT 96
[2020-05-04] MEDS: Lactated Ringers 1,000 ML 80 ML IVCONT (05:57)
[2020-05-04] MEDS: Ibuprofen 400 MG TABLET PO (06:33)
[2020-05-04 08:00] VITALS: BP 111/81; PULSE 53; RESP 20; TEMP 36.2; O2SAT 97
--- NOTE | 2020-05-04 08:24 | PM.PNGS ---
Subjective Subjective Interval history: Having a little pain this morning at incision sites, took motrin with relief. C/o right shoulder pain last night partially relieved by ambulating. Tolerating solid diet. Wants to go home. <IMTIAZ Ludwig Last Filed: 05/04/20 08:28> Physical Exam Vital Signs: Vital Signs: Vital Signs Temp Pulse Resp BP Pulse Ox 05/04/20 04:22 97.4 F 58 18 104/68 96 05/04/20 00:00 97.0 F 52 18 105/67 96 05/03/20 16:19 97.6 F 56 18 128/75 95 05/03/20 15:52 50 17 119/69 98 05/03/20 15:37 56 18 120/73 98 05/03/20 15:22 52 17 119/68 98 05/03/20 15:07 97.2 F 61 17 115/65 97 05/03/20 15:02 85 17 114/69 96 05/03/20 14:57 65 17 108/69 96 05/03/20 14:53 16 05/03/20 14:52 71 15 115/71 96 05/03/20 14:47 76 17 118/72 95 05/03/20 14:42 83 16 118/64 95 05/03/20 14:37 97.6 F 87 12 124/62 94 05/03/20 12:00 98.2 F 62 16 130/82 97 Body Mass Index 31.6 <IMTIAZ Ludwig Last Filed: 05/04/20 08:28> Const: General: healthy appearing, comfortable, no acute distress and alert <IMTIAZ Ludwig Last Filed: 05/04/20 08:28> Orientation/consciousness: patient oriented x3 <IMTIAZ Ludwgi Last Filed: 05/04/20 08:28> Eyes: Sclerae: sclerae normal <IMTIAZ Ludwig Filed: 05/04/20 08:28> Resp: Effort & Inspection: normal respiratory effort <IMTIAZ Ludwig Last Filed: 05/04/20 08:28> GI: Inspection: No distended and Yes incision (dressings c/d/i) <Tara Durbin PA-C - Last Filed: 05/04/20 08:28> Palpation (GI): Soft to palpation, Tenderness to palpation present (GI) (mild, incisional), no guarding and No Rebound tenderness present <Tara Durbin PA-C - Last Filed: 05/04/20 08:28> Skin: Other: normal color <Tara Durbin PA-C - Last Filed: 05/04/20 08:28> Neuro: General: patient oriented x3 <Tara Durbin PA-C - Last Filed: 05/04/20 08:28> Extrem: General: Yes no clubbing, cyanosis or edema <Tara Durbin PA-C - Last Filed: 05/04/20 08:28> Progress Note: A&P Assessment and plan (1) Acute appendicitis: Status: Acute <Tara Durbin PA-C - Last Filed: 05/04/20 08:28> (2) S/P laparoscopic appendectomy: Status: Acute <Tara Durbin PA-C - Last Filed: 05/04/20 08:28> Assessment and Plan: POD #1, doing well, comfortable and tolerating solid diet. VSS. Abd exam benign with appropriate post op tenderness, dressings c/d/i. Stable for discharge to home today. Patient comfortable with plan. F/u in office with Dr. Tate in 2 weeks. <Tara Durbin PA-C - Last Filed: 05/04/20 08:28> feels well good GI function ok to dc home seen and examined -agree with ELIAS Durbin <Tutu Payton MD - Last Filed: 05/04/20 09:37> (3) state: Status: Acute <Tara Durbin PA-C - Last Filed: 05/04/20 08:28> Fall Risk Details Current Medications: Current Medications Generic Name Dose Route Start Last Admin Trade Name Freq PRN Reason Stop Dose Admin Acetaminophen 650 mg 05/03/20 16:29 Acetaminophen 325 Mg Tablet PO Q6H PRN Pain and Fever Al Hydroxide/Mg Hydroxide 30 ml 05/03/20 17:05 Magnesium Hydrox/Alum Hydrox 30 Ml Oral.Susp PO Q4H PRN Heartburn Lactated Ringer's 1,000 mls @ 80 mls/hr 05/03/20 14:45 05/04/20 05:57 Lr IVCONT 80 mls/hr .[id number] RACHEL Administration Ibuprofen 400 mg 05/03/20 17:05 05/04/20 06:33 Ibuprofen 400 Mg Tablet PO 400 mg Q6H PRN Administration Pain, Moderate (Pain Scale 4-6 Morphine Sulfate 2 mg 05/03/20 16:29 Morphine Sulfate 2 Mg/Ml Cartridge IVPUSH Q4H PRN Pain, Severe (Pain Scale 7-10) Ondansetron HCl 4 mg 05/03/20 14:42 Ondansetron Hcl 4 Mg/2 Ml Vial IVPUSH Q8H PRN Nausea and Vomiting Oxycodone HCl 5 mg 05/03/20 16:29 Oxycodone Hcl Immed Release 5 Mg Tablet PO Q4H PRN Pain, Moderate (Pain Scale 4-6 Vit/Calcium/Iron/Folic Ac 1 tab 05/03/20 18:00 05/03/20 20:22 Vit27,Calcium/Iron/Fa Tablet PO 1 tab DAILY RACHEL Administration <Tara Durbin PA-C - Last Filed: 05/04/20 08:28> Time Spent With Patient Time: Total time spent is greater than 50% in coordination of care (as documented) at patient's floor/unit and/or counseling patient: <Tara Durbin PA-C - Last Filed: 05/04/20 08:28> Time with patient: 15 - 24 minutes <Tara Durbin PA-C - Last Filed: 05/04/20 08:28> No Severe Sepsis: No Severe Sepsis <Tara Durbin PA-C - Last Filed: 05/04/20 08:28>
--- NOTE | 2020-05-04 09:10 | MHC.CM.PN ---
Female 34 S/P Lap Appy. She lives with family she is independent adls. DP home no home services family transport. DC today.
--- NOTE | 2020-05-04 11:16 | PM.DS ---
DS: Providers Provider Date of admission: 05/02/20 03:09 Primary care physician: None Physician Consults: 05/02/20 17:36 Consult to Obstetrics / Gynecology Routine Consulting Provider: [facility] [place] [facility] Reason for consultation: recently , home delivery, request Ping De Leon CNM if possible Has provider been notified: No DS: Diagnosis Discharge Diagnosis (1) S/P laparoscopic appendectomy: Status: Acute (2) state: Status: Acute (3) Acute appendicitis: Status: Acute DS: Summary Hospital Course Hospital Course: Brief HPI: 34 year old female who is about 2 weeks following home delivery and who developed right lower quadrant abdominal pain about a day and a half ago. The pain was persistent and severe. She reports that it seems to be somewhat better now. She has been taking only acetaminophen for pain. She does not report fever or chills. Because of the persistent severe pain, she came to the emergency room last night for further evaluation. White blood count was normal at 7.2. A CT scan of the abdomen and pelvis was obtained and was consistent with early uncomplicated appendicitis. The patient was admitted to the surgical service for further treatment of the acute appendicitis. Treatment options were discussed with the patient including laparoscopic appendectomy possible open versus IV antibiotics and observation. The patient elected observation and antibiotic treatment. She was started on IV zosyn and IVF. A obgyn consult was obtained given the patient's post status. On HD#1, the patient had increasing RLQ pain and tenderness. She wanted to proceed with surgery. She was added onto the OR schedule for that day. On 05/03/20, a laparoscopic appendectomy was performed by Dr. Tate without complication. The patient tolerated the procedure well and was observed overnight. She had an uncomplicated post operative course. On POD#1, she felt well and was comfortable on PO motrin, tolerating a solid and OOB without difficulty. Her abdomen was benign with appropriate post op tenderness and dressings c/d/i. She felt ready for discharge. She was discharged to home on 05/04/20 in stable condition. She is to follow up with Dr. Tate in the office in 2 weeks. Status at Discharge Functional status at discharge: independent ambulation Overall status at discharge: patient is progressing back to baseline Time Spent with Patient Time attestation: Total time spent providing and/or coordinating discharge services: Physical Exam Vital Signs: Vital Signs: Vital Signs Temp Pulse Resp BP Pulse Ox 05/04/20 08:00 97.2 F 53 20 111/81 97 05/04/20 04:22 97.4 F 58 18 104/68 96 05/04/20 00:00 97.0 F 52 18 105/67 96 05/03/20 16:19 97.6 F 56 18 128/75 95 05/03/20 15:52 50 17 119/69 98 05/03/20 15:37 56 18 120/73 98 05/03/20 15:22 52 17 119/68 98 05/03/20 15:07 97.2 F 61 17 115/65 97 05/03/20 15:02 85 17 114/69 96 05/03/20 14:57 65 17 108/69 96 05/03/20 14:53 16 05/03/20 14:52 71 15 115/71 96 05/03/20 14:47 76 17 118/72 95 05/03/20 14:42 83 16 118/64 95 05/03/20 14:37 97.6 F 87 12 124/62 94 05/03/20 12:00 98.2 F 62 16 130/82 97 Body Mass Index 31.6 Const: General: healthy appearing, comfortable, no acute distress and alert Orientation/consciousness: patient oriented x3 Eyes: Sclerae: sclerae normal Resp: Effort & Inspection: normal respiratory effort Cardio: Rate: regular rate GI: Inspection: No distended and Yes incision (dressings c/d/i) Palpation (GI): Soft to palpation, Tenderness to palpation present (GI) (mild, incisional), no guarding and No Rebound tenderness present Skin: Other: normal color, warm and dry General skin exam: no rashes or lesions noted Neuro: General: patient oriented x3 Extrem: General: Yes no clubbing, cyanosis or edema DS: Data Data Completed and Pending Pending studies at discharge: Pending at discharge 05/03/20 14:11 Surgical [PTH] Routine Labs on day of discharge: Preliminary micro results at discharge 05/02/20 01:04 Blood Culture - Preliminary Blood - Venous No growth after 48 hours. 05/02/20 01:04 Blood Culture - Preliminary Blood - Venous No growth after 48 hours. Discharge Plan Discharge Patient Disposition: Home, Self-Care Referrals: Temitope Tate MD [Physician] - 2 Weeks Physician,None [Primary Care Provider] - Discharge Medications: Continued No Known Home Meds RF: 0 Discharge Orders: Discharge Order (Routine); Ordered 05/04/20 Ordered By: Tara Durbin Diet: advance to your usual diet Activity on Discharge: No heavy lifting Discharge Date/Time: 05/04/20 10:50 Activity Restrictions/Additional Instructions: If the incision area is tender, you may apply an ice pack for short intervals (No more than 20 minutes on, followed by at least 20 minutes off). Do not apply heat. Do not use creams, lotions, or topical antibiotics unless instructed to do so by your surgeon. These can cause infection or allergic reaction. Remove bandaids in 2 days. Ok to shower. You have steri strips (small white cloth strips) covering your incision- these will fall off ~1 week. Call Your Doctor If: -Your temperature exceeds 101.5? F -You experience excessive pain or swelling -You have an unexpected reaction to medication -You have excessive bleeding -You experience continued vomiting/nausea -Your incision begins to separate -Your incision shows signs of infection such as increased redness, swelling, excessive pain, drainage (light blood or clear fluid is normal) or heat Visit Report Forms: Patient Portal Discharge page Care Plan Goals: Return to baseline health and activity. Health Concerns: Acute appendicitis, s/p laparoscopic appendectomy Plan of Treatment: Pain control, discharge to home
--- NOTE | 2020-05-04 13:41 | HO.POSTANES ---
Post Anesthesia Evaluation Post Anesthesia Evaluation Vital Signs: Vital Signs Temp Pulse Resp BP Pulse Ox 05/04/20 08:00 97.2 F 53 20 111/81 97 05/04/20 04:22 97.4 F 58 18 104/68 96 Anesthesia: General Endotracheal-GETA Mental Status: Awake Pain Control: Satisfactory Nausea/Vomiting: None Hydration: Adequate Anesthesia-Related Issues: No Anes. Related Issues
== END 2020-05-04 10:50 | disposition home or self-care (01) | DRG 952 ==
LOC: HO.ED 05-02 02:44 → HO.S3 05-02 13:09
PROVIDERS: Admitting Provider Surgery; Emergency Provider Emergency Medicine; Visit Provider Surgery
PROC: 0DTJ4ZZ Resection of Appendix, Percutaneous Endoscopic Approach (ICD-10-PCS; CPT 44970; principal; 2020-05-03 12:00)
DX: O99.63 Diseases of the digestive system complicating the puerperium (principal); K35.30 Acute appendicitis with localized peritonitis, without perforation or gangrene; Z20.828 Contact with and (suspected) exposure to other viral communicable diseases
CPT/HCPCS: 36415; 74176; 80048; 80076; 81001; 83605; 83690; 83735; 85025; 85610; 85730; 87040; 87086; 87635; 88304; 96361; 96365; 96375; 99284; 99291; J0131; J1100; J2405; J2543; J3010

== ENCOUNTER → 2020-05-17 10:51 | Outpatient (BNVA) | payer MEDICAID, SELFPAY | PROVIDERS: Visit Provider Surgery | DX: Z09 Encounter for follow-up examination after completed treatment for conditions other than malignant neoplasm (principal); Z87.19 Personal history of other diseases of the digestive system; Z90.49 Acquired absence of other specified parts of digestive tract | CPT/HCPCS: 99212 ==

== ENCOUNTER → 2022-01-20 15:08 | Outpatient (BNVA) | payer MEDICAID, SELFPAY | PROVIDERS: Visit Provider Surgery | DX: O99.63 Diseases of the digestive system complicating the puerperium (principal); K42.9 Umbilical hernia without obstruction or gangrene; O90.89 Other complications of the puerperium, not elsewhere classified; M62.08 Separation of muscle (nontraumatic), other site | CPT/HCPCS: 99202 ==

== ENCOUNTER 2023-03-16 15:40 | Outpatient (AMB) | payer OTHER, SELFPAY ==
--- NOTE | 2023-03-16 15:41 | A.OFFVIS_ITS ---
Intake Vital Signs 03/16/23 15:54 Weight 183 lb BP 128/70 Blood Pressure Location Rt brachial Position Sitting Pulse 68 Intake Visit Reasons: abd pain, ? hernia Intake Note: This patient presents for an assessment for umbilical hernia. Patient c/o; umbilical region, bulge, abdominal pain, denies changes in bowel habits or problems with bowel movements. 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 hernia HPI Details 37-year-old female referred for question of a hernia. She had undergone laparoscopic appendectomy in [address] Tate for acute appendicitis. She had an umbilical hernia repaired at that time. This was also the port site for the Medeiros port. She had been doing well but she was again last year. She says that about a few weeks ago she had noticed swelling on the umbilicus. She says that the area would be periodically larger times. She was having pain as well. She denies GI complaints. Currently says that the site seems to be nontender. [facility] Medical History Collapsed lung No known health problems Surgical History History of laparoscopic appendectomy Hx of chest tube placement Family History Mother Breast cancer Social History Household Members: Family Housing: House Do you presently have visiting nurse or other home services: No Alcohol intake: never service: No Current occupational status: other Review of Systems Const Denies chills and Denies fever(s) Card Denies chest pain, Denies dyspnea and Denies dyspnea on exertion Resp Denies cough, Denies dyspnea and Denies dyspnea on exertion GI Denies hematochezia and Denies change in bowel habits Denies hematuria Musc Denies back pain and Denies limited range of motion Neuro Denies focal weakness and Denies convulsions Psych Denies depression and Denies mood swings Physical Exam Const General: comfortable and no acute distress Orientation/consciousness: patient oriented x3 Neck Neck: Yes no lymphadenopathy Resp Auscultation: clear to auscultation bilaterally Cardio Rhythm: regular rhythm GI Other: Umbilical hernia, reducible about 1.5 cm. She also points to this supraumbilical area as where she thought that she had another mass that was reducible as well. This is not obvious at this time but this is old port site was. Palpation (GI): Soft to palpation, nontender and no guarding Neuro General: patient oriented x3 Assessment & Plan Assessment & Plan (1) Recurrent umbilical hernia: Code(s): K42.9 - Umbilical hernia without obstruction or gangrene Plan: She had an umbilical hernia repaired during her laparoscopic appendectomy in 2019. She points to an area on the old port site above the umbilicus which she notices swelling and a reducible mass. On examination, there is also an obvious hernia on the umbilicus itself. This seems to be lower than the previous port site I am going to order for a CAT scan to define all defects in the area as she may have multiple In the meantime, I have scheduled her for repair of the umbilical hernia. I explained the technique of this procedure with mesh. I reviewed the risks including but not limited to bleeding, infections, recurrence, bowel injury, postop pain, as well as the benefits and alternatives. I explained to her what to expect postoperatively She has given consent. Orders: Orders CT abdomen pelvis wo IV con Today K42.9 - Umbilical hernia without obstruction or gangrene Coding Level of Care Code New Pt Level 3 (99445) Diagnoses Recurrent umbilical hernia K42.9
[2023-03-16 15:54] VITALS: BP 128/70; PULSE 68
== END 2023-03-16 16:14 | disposition home or self-care (01) ==
PROVIDERS: Visit Provider Surgery
DX: K42.9 Umbilical hernia without obstruction or gangrene (principal)
CPT/HCPCS: 99203

== ENCOUNTER → 2023-03-16 15:40 | Outpatient (BNVA) | payer OTHER, SELFPAY | PROVIDERS: Visit Provider Surgery | DX: K42.9 Umbilical hernia without obstruction or gangrene (principal) | CPT/HCPCS: 99202 ==

== ENCOUNTER 2023-04-06 16:30 | Outpatient (REF) | payer OTHER, SELFPAY ==
--- NOTE | ~2023-04-06 | CT_ITS ---
EXAMINATION: CT ABDOMEN AND PELVIS WITHOUT CONTRAST CLINICAL INFORMATION: Umbilical hernia without obstruction or gangrene. COMPARISON: CT abdomen and pelvis 05/02/2020. TECHNIQUE: Multidetector volumetric imaging was performed from the superior aspect of the liver through the pubic symphysis. Sagittal and coronal reformatted images were obtained on the technologist's workstation. This CT examination was performed using dose optimization techniques as appropriate, variously including the following: *Automated exposure control *Adjustment of mA and/or kV according to patient size (this includes techniques or standardized protocols for targeted exams where dose is matched to indication/reason for exam; i.e. extremities or head) *Use of iterative reconstruction technique DLP: 552 mGy-cm FINDINGS: LUNG BASES: The visualized lung bases are unremarkable. LIVER, GALLBLADDER, AND BILIARY TREE: Focal steatosis in segment 4 along the falciform ligament. Otherwise the liver appears normal. No ductal dilatation. The gallbladder is unremarkable with no evidence of radiopaque gallstones, gallbladder wall thickening, or obvious pericholecystic inflammatory changes. PANCREAS: No visible pancreatic mass or ductal dilatation. SPLEEN: The spleen appears normal. ADRENAL GLANDS: Normal adrenal glands. KIDNEYS AND URETERS: The kidneys are normal in size, shape, and attenuation. No hydronephrosis, hydroureter, or calculi seen. No perinephric stranding. BLADDER: Decompressed. GASTROINTESTINAL TRACT: The small bowel is normal in caliber. High density material along the base of the cecum consistent with appendectomy. Mild sigmoid diverticulosis without evidence of diverticulitis. ABDOMINAL WALL: Supraumbilical ventral hernia measuring 3.6 x 2.8 x 2.3 cm containing fat. The neck measures 5 x 3 mm. Right periumbilical hernia measuring 2.3 x 2.2 x 1.9 cm containing fat. The neck measures 12 x 12 mm. Small left periumbilical hernia measuring 1.0 x 1.4 x 1.9 cm containing fat. The neck measures 9 x 5 mm. LYMPH NODES: No adenopathy. VASCULAR: The abdominal aorta is normal in caliber. PELVIC VISCERA: The uterus and adnexa appear normal. Trace layering free fluid in the deep pelvis is most likely physiologic. OSSEOUS STRUCTURES: Mild degenerative disc disease at L5-S1. CT/CT abdomen pelvis wo IV con IMPRESSION: Supraumbilical and periumbilical fat-containing hernias as measured above are not significantly changed from 05/02/2020. Fleischner guidelines were followed.
== END 2023-04-06 16:31 | disposition home or self-care (01) ==
LOC: HO.CT 16:30
PROVIDERS: Visit Provider Surgery
DX: K42.9 Umbilical hernia without obstruction or gangrene (principal)
CPT/HCPCS: 74176

== ENCOUNTER 2023-04-17 06:09 | Day surgery (SDC) | payer OTHER, SELFPAY ==
[2023-04-14 15:49] VITALS: BMI 30.4
--- NOTE | 2023-04-16 09:12 | HO.ANESPROP2 ---
Documented by User: Delmis Drummond NP 04/16/23 09:13 HPI - Anesthesia Eval Consult details Narrative: 37yo F for Hernia Repair Umbilical with mesh Currently PMFSH Active Problems Active Problems: All Active Problems (Updated 04/14/23 @ 15:53 by Gabrielle Guo RN) Diastasis recti (Acute) Recurrent umbilical hernia (Acute) S/P laparoscopic appendectomy (Acute) state (Acute) Acute appendicitis (Acute) Past Medical History Medical History (Updated 04/14/23 @ 15:53 by Gabrielle Guo RN) Mother currently breast-feeding Family History Family History Mother Breast cancer Surgical History Surgical History (Updated 04/14/23 @ 15:48 by Gabrielle Guo RN) History of laparoscopic appendectomy Hx of chest tube placement Social History Social History (Updated 04/14/23 @ 15:44 by Gabrielle Gou RN) Household Members: Family Household Members Other:: spouse and 5 children Housing: House 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 If so, by whom?: No Are you DNR?: No Advance Directives: No Advance Directives Information Provided: Yes Advance Directives on File: No Nutrition Risks: No Nutritional Risk Patient : No FDLMP: 04/14/2023 : Yes Poor oral hygiene: No service: No Current occupational status: other Meds Allergies Allergy/AdvReac Type Severity Reaction Status Date / Time chloraprep Allergy Intermediate hives Uncoded 04/17/23 06:40 eggs, dairy, wheat AdvReac Mild stomach Uncoded 04/17/23 06:40 upset Home Medications Medication Instructions Recorded Confirmed Last Taken Type No Known Home Meds 03/16/23 04/14/23 Unknown History Exam Exam Date and Time: April 16, 2023 0912 Height,Weight and Vital Signs: Height 5 ft 5 in Weight 83.007 kg Assessment and Plan Assessment Anesthesia Assessment: Chart Reviewed Documented by User: Edwin Marin MD 04/17/23 07:26 [facility] Past Medical History Medical History (Updated 04/14/23 @ 15:53 by Gabrielle Guo, RN) Mother currently breast-feeding Family History Family History Mother Breast cancer Family history of problems with anesthesia: No Surgical History Surgical History (Updated 04/14/23 @ 15:48 by Gabrielle Guo, RN) History of laparoscopic appendectomy Hx of chest tube placement History of Problems with Anesthesia: No Social History Social History (Updated 04/14/23 @ 15:44 by Gabrielle Guo, RN) Household Members: Family Household Members Other:: spouse and 5 children Housing: House 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 If so, by whom?: No Are you DNR?: No Advance Directives: No Advance Directives Information Provided: Yes Advance Directives on File: No Nutrition Risks: No Nutritional Risk Patient : No FDLMP: 04/14/2023 : Yes Poor oral hygiene: No service: No Current occupational status: other Meds Allergies Allergy/AdvReac Type Severity Reaction Status Date / Time chloraprep Allergy Intermediate hives Uncoded 04/17/23 06:40 eggs, dairy, wheat AdvReac Mild stomach Uncoded 04/17/23 06:40 upset Home Medications Medication Instructions Recorded Confirmed Last Taken Type No Known Home Meds 03/16/23 04/14/23 Unknown History Exam Airway Mallampati Class: II TM Dist: >3cm Neck ROM: Full Heart: rrr Lungs: cta Assessment and Plan Assessment Anesthesia Assessment: Anesthesia Plan Discussed Final Anesthetic Review Family History of Problems with Anesthesia: No History of Problems with Anesthesia: No NPO: Yes ASA Class: II Final Preanesthetic Review: No Changes in Pt Med Stat, Meds/Allgs Chart Reviewed, Consent Obtained/Reviewed and Anes Risks/Benef Reviewed Patient Risk: Low Procedure Risk: Low Anesthetic Plan Anesthetic Plan: GA and Agree w/ Assess. and Plan Disposition: Standard PACU
[2023-04-17] VITALS (11 sets, daily range): BP systolic 103–120; BP diastolic 59–75; PULSE 44–56; RESP 13–16; TEMP 36.3–36.7; O2SAT 98–100; BMI 30.1
[2023-04-17 06:26] LABS: UPreg QC Valid YES; Urine Pregnancy NEGATIVE (NEGATIVE)
[2023-04-17] MEDS: Lactated Ringers 1,000 ML 100 ML IVCONT (06:38)
--- NOTE | 2023-04-17 07:26 | P.HPSUR_ITS ---
Pre-Procedural Eval Section A Date of Service: 04/17/23 Section B Chief Complaint: Umbilical hernia without obstruction or gangrene Details of Present Illness: has mass on umbilicus with discomfort Relevant Family History (Specify if Yes): No Relevant Social History: None Present Medications: None Medical History: No relevant PMH History of Previous Operations: No relevant previous surgery Allergies: Allergies Allergy/AdvReac Type Severity Reaction Status Date / Time chloraprep Allergy Intermediate hives Uncoded 04/17/23 06:40 eggs, dairy, wheat AdvReac Mild stomach Uncoded 04/17/23 06:40 upset Review of Systems Sugical H&P ROS: Negative: Constitution, Cardiovascular, Respiratory, Neurological, Psychiatric, Hem-Onc, Allergic/Immunologic, Gastrointestinal, Genitourinary, Musculoskeletal, Integumentary, Endocrine and Ey es/Ears/Nose/Throat Exam Surgical H&P Exam: Normal: HEENT, Normal: Heart, Normal: Lungs, Normal: Extremities, Normal: Skin and Normal: Neurological and Significant Findings: Abdomen (umbilical hernia) Exam Comment: CT shows 2-3 small hernias near the umbilicus adjacent to each other Plan Diagnosis/Plan: Unchanged I have reviewed the history and physical and performed a pertinent physical examination on my patient. No changes have occurred unless specified. Time Spent With Patient Time: Total time managing care of this patient today ____ minutes.
--- NOTE | 2023-04-17 08:22 | W.PM.OPN ---
Operative Note Operative Note Date of Service: 04/17/23 Narrative: Preop diagnosis: Periumbilical hernias, multiple Postop diagnosis: Periumbilical hernias x2 Procedure: Repair of 2 mykel umbilical hernias, with Ventralex meshes, partial omentectomy Surgeon: Tutu Payton MD The patient is a 37-year-old female with an umbilical mass. Review of her CT scan shows 2 or 3 umbilical hernias which were fat containing. She did have a history of laparoscopic appendectomy so 1 of these hernias may have been from a port site . She wanted to proceed with repair and she understood the technique of the planned procedure as well as the risks, benefits, and alternatives. She was brought to the operating room. She was placed supine under general anesthesia via a laryngeal mask airway. The abdomen was prepped and draped in the usual sterile fashion. A surgical time-out was done. The patient received cefazolin 2 g IV preoperatively I infiltrated the planned line of incision starting from above the umbilicus is caudally towards just below the umbilicus using blade 15. This was carried down with electrocautery through the full-thickness of the skin and part of the subcutaneous layer until was able to visualize the hernia contents. I sharply dissected the hernia contents off of the rest of the subcutaneous layer down to the fascia. This was on the AP supraumbilical area. I carefully defined this hernia by gently dissecting sharply Metzenbaum scissors and electrocautery to separate the hernia contents off of the fascial edges. There was a large amounts of what appeared to be omental fat through a narrow defect. The defect was about 1.2 cm. Of the large amount of herniated omentum, I could not reduce this to the narrow defect so I had to do a partial omentectomy. I serially ligated this herniated omentum and transected this. I transected omentum was sent as a specimen. I ligated the omentum with served 2-0 ties. By doing so was able to completely reduce this contents with a small defect. This 1st defect above the umbilicus was about 1.5 cm. I continued to carefully define the rest of the periumbilical hernia defect. I was able to visualize another hernia in the umbilicus itself. I carefully dissected the hernia contents off the rest of subcutaneous layer and the umbilical dimple until able to define the fascial edge. This fascial edges about 1 cm in diameter. I was able to reduce this hernia contents which also contain fat without difficulty. I palpated the rest of the umbilical area. There was no other palpable defect. Since these 2 fascial defects were far enough from each other I decided to repair this separately. I positioned a small-sized Ventralex mesh on the supraumbilical a defect in the fascia at flattened this. I secured this mesh using the Prolene straps to the fascial edges on both sides. I trimmed both Prolene straps. I closed this fascial defect with a [id number] Maxon 1 stitch I then proceeded to position a 2nd Ventralex mesh on the smaller hernia in the umbilicus itself. I positioned this under the fascia and flattened this. I secured the Prolene straps of each mesh to the fascial edge on both sides with Prolene 2 sutures I closed this fascial defect with a [id number] and 1 stitch. Hemostasis had been confirmed so I reapposed the subcutaneous layer with Polysorb 3-0 interrupted sutures. Skin closure was achieved with pulse of 4-0 subcuticular running sutures. I infiltrated the area with Marcaine 0.5% for postop JOSH. Dressings were applied. The procedure was completed. The patient tolerated the procedure well. There were no immediate complications. Initial and final counts of sponges and instruments were correct. Estimated blood loss was about 5 cc. The patient was extubated without difficulty and transferred to the recovery room with stable vital signs.
[2023-04-17] MEDS: HYDROmorphone HCl 0.5 MG/0.5 ML SYRINGE 0.25 MG IVPUSH ×2 (08:48→08:53)
== END 2023-04-17 10:40 | disposition home or self-care (01) ==
PROVIDERS: Nurse Practitioner; Visit Provider Surgery
PROC: (CPT 49591; principal; 2023-04-17 07:30)
DX: K42.9 Umbilical hernia without obstruction or gangrene (principal); K43.9 Ventral hernia without obstruction or gangrene; Z90.49 Acquired absence of other specified parts of digestive tract
CPT/HCPCS: 49591 ×2; 81025; 88304; C1781; J0131; J0690; J1100; J1170; J1885; J2405; J2550

== ENCOUNTER → 2023-04-17 06:09 | Outpatient (BNV) | payer OTHER, SELFPAY | PROVIDERS: Visit Provider Surgery | DX: K42.9 Umbilical hernia without obstruction or gangrene (principal) | CPT/HCPCS: 49593 ==

== ENCOUNTER 2023-04-30 11:02 | Outpatient (AMB) | payer OTHER, SELFPAY ==
--- NOTE | 2023-04-30 11:04 | A.OFFVIS_ITS ---
Intake Intake Visit Reasons: S/P umbilical hernia w/mesh Intake Note: This patient presents for a post-op assessment status post umbilical hernia with mesh. Patient c/o; reports no complaints at this time pertaining to surgery. Nurse Practitioner Adult Required: No Accompanied by: Self / Same As Patient Allergies chloraprep Allergy (Intermediate, Uncoded 04/30/23 11:07) hives eggs, dairy, wheat Adverse Reaction (Mild, Uncoded 04/30/23 11:07) stomach upset HPI S/P umbilical hernia w/mesh HPI Details She underwent repair of an umbilical hernia with mesh on April 17, 2023. She is here for a postop visit. She says she is doing well overall. She has good pain control. She denies GI complaints. [facility] Medical History Mother currently breast-feeding Surgical History History of hernia repair (~04/17/23) History of laparoscopic appendectomy Hx of chest tube placement Family History Mother Breast cancer Social History Household Members: Family Household Members Other:: spouse and 5 children Housing: House Are you a primary care navigator to a significant other at home: Yes (5 children) Do you presently have visiting nurse or other home services: No Alcohol intake: never Patient Tobacco Use Status: Former Tobacco user Quit Date: 2007 Tobacco use type: Cigarette Years Smoked: 2 service: No Current occupational status: other Review of Systems Const Denies chills and Denies fever(s) Card Denies chest pain, Denies dyspnea and Denies dyspnea on exertion Resp Denies cough, Denies dyspnea and Denies dyspnea on exertion GI Denies hematochezia and Denies change in bowel habits Denies hematuria Musc Denies back pain and Denies limited range of motion Neuro Denies focal weakness and Denies convulsions Psych Denies depression and Denies mood swings Physical Exam Const General: comfortable and no acute distress Resp Effort & Inspection: normal respiratory effort GI Other: Umbilical hernia repair site is healing well, repair intact, no evidence of infection Assessment & Plan Assessment & Plan (1) Recurrent umbilical hernia: Code(s): K42.9 - Umbilical hernia without obstruction or gangrene Plan: Status post repair with mesh. Her incision is healing well. The repair site is intact. I advised her to avoid any lifting more than 20 lb for at least 2 more weeks. She can otherwise follow up on a p.r.n. basis. Coding Level of Care Code Global (07068) Diagnoses Recurrent umbilical hernia K42.9
== END 2023-04-30 11:10 | disposition home or self-care (01) ==
PROVIDERS: Visit Provider Surgery
DX: K42.9 Umbilical hernia without obstruction or gangrene (principal); Z09 Encounter for follow-up examination after completed treatment for conditions other than malignant neoplasm
CPT/HCPCS: 99212

== ENCOUNTER → 2023-04-30 11:02 | Outpatient (BNVA) | payer OTHER, SELFPAY | PROVIDERS: Visit Provider Surgery | DX: K42.9 Umbilical hernia without obstruction or gangrene (principal) | CPT/HCPCS: 99212 ==

== ENCOUNTER 2023-05-07 09:34 | Emergency (ER) | payer OTHER, SELFPAY ==
--- NOTE | ~2023-05-07 | US_ITS ---
EXAMINATION: US ABDOMEN LIMITED CLINICAL INFORMATION: Right upper quadrant pain. COMPARISON: 04/06/2023 TECHNIQUE: Real-time imaging of the right upper quadrant abdominal viscera. FINDINGS: PANCREAS: Tail obscured. LIVER: The liver is normal in size. The liver contour is normal. Parenchymal echogenicity is normal. No focal hepatic lesion. There is no intrahepatic biliary duct dilatation seen. GALLBLADDER: The gallbladder is physiologically distended without evidence of stones, sludge, polyps, wall thickening or pericholecystic fluid. COMMON BILE DUCT: Normal in caliber measuring 0.3 cm in diameter. RIGHT KIDNEY: No hydronephrosis. No renal calculi or focal parenchymal lesions. The kidney measures 10.6 cm in maximum dimension. FREE FLUID: None. US/US abdomen limited IMPRESSION: No acute abnormality.
--- NOTE | ~2023-05-07 | US_ITS ---
EXAMINATION: US PELVIS CLINICAL INFORMATION: Pelvic pain. LMP 04/13/2023 COMPARISON: 06/18/2019 TECHNIQUE: Ultrasound of the pelvis is performed using both transabdominal and transvaginal transducers along with Doppler. Transvaginal imaging is performed due to inadequate visualization transabdominally. FINDINGS: Uterus: The uterus is anteverted and measures 8.6 x 4.0 x 5.4 cm. Uterine echotexture is heterogeneous. No discrete fibroid. The double wall endometrial thickness is 10 mm. Adnexa: Both ovaries are visualized. There is normal color flow to the adnexa. There is no ovarian torsion. There is no pelvic ascites or fluid collection. Right ovary measures 3.4 x 3.5 x 3.8 cm. Volume is 23.7 mL. Left ovary measures 3.0 x 1.7 x 2.2 cm. Volume is 5.9 mL. US/US pelvic and transvaginal IMPRESSION: There is no sonographic abnormality to explain the patient's pelvic pain. No evidence of ovarian torsion.
--- NOTE | ~2023-05-07 | US_ITS ---
EXAMINATION: US PELVIS CLINICAL INFORMATION: Pelvic pain. LMP 04/13/2023 COMPARISON: 06/18/2019 TECHNIQUE: Ultrasound of the pelvis is performed using both transabdominal and transvaginal transducers along with Doppler. Transvaginal imaging is performed due to inadequate visualization transabdominally. FINDINGS: Uterus: The uterus is anteverted and measures 8.6 x 4.0 x 5.4 cm. Uterine echotexture is heterogeneous. No discrete fibroid. The double wall endometrial thickness is 10 mm. Adnexa: Both ovaries are visualized. There is normal color flow to the adnexa. There is no ovarian torsion. There is no pelvic ascites or fluid collection. Right ovary measures 3.4 x 3.5 x 3.8 cm. Volume is 23.7 mL. Left ovary measures 3.0 x 1.7 x 2.2 cm. Volume is 5.9 mL. US/US pelvic ovarian doppler IMPRESSION: There is no sonographic abnormality to explain the patient's pelvic pain. No evidence of ovarian torsion.
[2023-05-07 09:37] VITALS: BP 130/85; PULSE 81; RESP 18; TEMP 36.6; O2SAT 98; BMI 31.9
[2023-05-07 09:54] LABS: MANUAL DIFF FLAG NO
[2023-05-07 09:57] LABS: Basophils Absolute Auto 0.1 X10*3/uL (0.0-0.2); Basophils Percent Auto 0.5 % (0-2); Eosinophils Absolute Auto 0.3 X10*3/uL (0.0-0.4); Eosinophils Percent Auto 2.9 % (0-4); Hematocrit 41.8 % (37.0-47.0); Hemoglobin 14.3 g/dl (12.0-16.0); Imm Gran Abs Auto 0.04 X10*3/uL (0.00-0.03); Imm Gran Pct Auto 0.4 % (0.0-0.4); Lymphocytes Absolute Auto 1.9 X10*3/uL (1.2-4.9); Mean Corpuscular HGB Conc 34.2 g/dl (31.0-35.0); Mean Corpuscular Hemoglobin 29.4 pg (27.0-33.0); Neutrophils Absolute Auto 7.7 x10*3/uL (2.0-8.3); Neutrophils Percent Auto 70.2 % (45-73); Platelet Count 283 X10*3/uL (160-400); Red Blood Count 4.86 X10*6/uL (4.20-5.50); Red Cell Distribution Width 13.5 % (11.0-16.0); White Blood Count 10.9 X10*3/uL (4.8-10.8)
[2023-05-07 10:11] LABS: Appearance Urine Clear; Color Urine Yellow; Glucose Urine UA Negative (Negative); Leukocyte Esterase Urine Small (1+) (Negative); Nitrite Urine Negative (Negative); PH 5.5 (5.0-9.0); Specific Gravity - Urine 1.025 (1.005-1.025); UMIC TRIGGER UACC YES; Urine Blood Negative (Negative); Urine Ketones Negative (Negative); Urine Protein Negative (Neg-Trace)
[2023-05-07 10:12] LABS: Alanine Aminotransferase 15 U/L (0-31); Albumin Level 4.5 g/dL (3.5-5.0); Alkaline Phosphatase 60 U/L (39-117); Anion Gap 12 (12-20); Aspartate Amino Transferase 15 U/L (5-31); Bilirubin Direct 0.2 mg/dL (0.0-0.5); Bilirubin Total 0.5 mg/dL (0.0-1.0); Blood Urea Nitrogen 12 mg/dL (9-16); Calcium 9.4 mg/dL (8.4-10.2); Carbon Dioxide 23 mmol/L (22-29); Chloride 108 mmol/L (96-108); Creatinine Clr Calc Pharmacy 116.2; Estimated Glomerular Filt Rate > 60; Glucose Random 76 mg/dL (60-115); Lipase 41 U/L (8-78); Potassium 4.6 mmol/L (3.3-5.1); Sodium 138 mmol/L (135-145)
[2023-05-07 10:14] LABS: Bacteria Urine Trace (None Seen); Hyaline Casts Urine 0-2 /LPF (0-2); RBC Urine 0-2 /HPF (0-2); UACC Culture Trigger YES; UPreg QC Valid YES; Urine Pregnancy NEGATIVE (NEGATIVE)
--- NOTE | 2023-05-07 10:18 | ED_ITS ---
HPI - Abdominal Pain General Chief Complaint: Abdominal Pain Stated Complaint: upper and lower abd pain Time Seen by Provider: 05/07/23 10:09 Source: patient Mode of arrival: ambulatory Limitations: no limitations History of Present Illness HPI narrative: 37 yo female with PMH of ovarian cysts, prior appendectomy, recent umbilical hernia repair 04/17 with mesh has done great post operatively - reports pain in RUQ and lower abdomen with low grade burning and dysuria prior the procedure. She denies n/v/d fevers or any other or GI complaints. Denies known gallstones. MD elicited complaint: abdominal pain Pertinent past history: other (recent stones) Onset (ago): week(s) (few weeks but worse past couple of days) Pain Consistency: intermittent Location: RUQ and pelvis Severity: moderate Quality: aching Radiation: none Migration to: no migration Exacerbating factors: nothing Relieving factors: nothing Associated symptoms: dysuria Related Data Previous Rx's Medication Instructions Recorded ibuprofen 600 mg tablet 600 mg PO Q6H PRN pain #30 tabs 04/17/23 oxycodone-acetaminophen 5 mg-325 1 tab PO Q4-6H PRN pain #30 tabs 04/17/23 mg tablet (Percocet) nitrofurantoin 100 mg PO Q12H 5 days #10 caps 05/07/23 monohydrate/macrocrystals 100 mg capsule (Macrobid) Allergies Allergy/AdvReac Type Severity Reaction Status Date / Time chloraprep Allergy Intermediate hives Uncoded 04/30/23 11:07 eggs, dairy, wheat AdvReac Mild stomach Uncoded 04/30/23 11:07 upset Review of Systems Review of Systems Constitutional : No Weight loss, No Fever, No Chills ENT/Mouth : No sore throat, No Rhinorrhea Eyes: No Swelling, No Redness Cardiovascular : No Chest Pain, No SOB, NoEdema Respiratory : No Cough, No Sputum, No Wheezing Gastrointestinal : no Nausea, no Vomiting, no Diarrhea, positive abdominal Pain, No Hematochezia, No Melena Genitourinary : pos Dysuria, No Urinary Frequency, No Hematuria, No Urgency Musculoskeletal : No joint pain, No Myalgias, No Joint Swelling Skin : No Skin Lesions, No rash Neuro : No Weakness, No Numbness, No Dizziness, No Headache Psych : No Anxiety/Panic, No Depression All other systems reviewed and are negative. PMFSH Past Medical History Attestation statement: The following information was validated with the patient. Medical History Mother currently breast-feeding Surgical History History of hernia repair (~04/17/23) History of laparoscopic appendectomy Hx of chest tube placement Family History Family History Mother Breast cancer Social History Social History Household Members: Family Household Members Other:: spouse and 5 children Housing: House Are you a primary patient centered care specialist to a significant other at home: Yes (5 children) Do you presently have visiting nurse or other home services: No Alcohol intake: current Alcohol intake frequency: holidays/special occasions only Patient Tobacco Use Status: Former Tobacco user Quit Date: 2007 Tobacco use type: Cigarette Years Smoked: 2 Smoked in Last 30 Days: No Use of substances other than those prescribed or required for medical reasons: No Advance Directives: No Patient : No service: No Current occupational status: other Physical Exam ED Vital Signs: Vital Signs - 24 hr 05/07/23 09:37 Temperature 97.9 F Pulse Rate 81 Respiratory Rate 18 Blood Pressure 130/85 Pulse Oximetry 98 Oxygen Delivery Method Room Air BMI result Body Mass Index 31.9 Appearance: Alert. Oriented X3. No acute distress. Eyes: Pupils equal, round and reactive to light. ENT: Pharynx normal. Neck: Normal inspection. Neck supple. CVS: Normal heart rate and rhythm. Pulses normal. Respiratory: No respiratory distress. Breath sounds normal. Abdomen: Soft and mild suprapubic ttp no rebound or guarding, mild RUQ ttp neg jolley's sign - incision well healed Skin: Skin warm and dry. Normal skin color. Normal skin turgor. Extremities: No lower extremity edema. No calf ttp Neuro: Oriented X 3. No motor deficit. No sensory deficit. Medical Decision Making Medical Decision Making MDM Narrative: 37 yo female with PMH of ovarian cysts, prior appendectomy, recent umbilical hernia repair 04/17 with mesh has done great post operatively here with c/o pain in pelvis/RUQ which was present prior to surgery - no associated or GI complaints she is refusing IV contrast and given complaints in RUQ and pelvis will obtain workup for ovarian cyst and biliary colic. She has no obstructive symptoms she is having BM, flatus and no n/v. She is not toxic appearing has had this pain in the past. Differential Diagnosis Differential Diagnoses: The differential diagnosis associated with the presentation includes ovarian cyst, UTI, biliary colic Admission/Observation Consideration of admission/observation: Escalation of care including admission/observation considered negative workup , eating food stable for DC Lab Data MDM Lab Attestation statement: I reviewed the patient's lab results. given dysuria and WBC will start on 5 days of macrobid 05/07/23 09:48 05/07/23 09:48 Labs: Lab Results 05/07/23 05/07/23 Range/Units 09:48 11:50 WBC 10.9 H (4.8-10.8) X10*3/uL RBC 4.86 (4.20-5.50) X10*6/uL Hgb 14.3 (12.0-16.0) g/dl Hct 41.8 (37.0-47.0) % MCV 86.0 (80.0-98.0) fL MCH 29.4 (27.0-33.0) pg MCHC 34.2 (31.0-35.0) g/dl RDW 13.5 (11.0-16.0) % Plt Count 283 (160-400) X10*3/uL MPV 11.0 (9.4-12.3) fL Immature Gran % (Auto) 0.4 (0.0-0.4) % Neut % (Auto) 70.2 (45-73) % Lymph % (Auto) 17.0 L (20-40) % [place] % (Auto) 9.0 (2-11) % Eos % (Auto) 2.9 (0-4) % Baso % (Auto) 0.5 (0-2) % Lymph # (Auto) 1.9 (1.2-4.9) X10*3/uL [place] # (Auto) 1.0 (0.1-1.2) X10*3/uL Eos # (Auto) 0.3 (0.0-0.4) X10*3/uL Baso # (Auto) 0.1 (0.0-0.2) X10*3/uL Abs Immat Gran (auto) 0.04 H (0.00-0.03) X10*3/uL Absolute Neuts (auto) 7.7 (2.0-8.3) x10*3/uL Absolute Nucleated RBC 0.000 (0.0-0.012) X10*3/uL Nucleated RBC % (auto) 0.0 (0.0-0.2) /100WBC Sodium 138 (135-145) mmol/L Potassium 4.6 (3.3-5.1) mmol/L Chloride 108 (96-108) mmol/L Carbon Dioxide 23 (22-29) mmol/L Anion Gap 12 (12-20) BUN 12 (9-16) mg/dL Creatinine 0.71 (0.5-1.4) mg/dL Estim Creat Clear Calc 116.2 Estimated GFR > 60 Random Glucose 76 (60-115) mg/dL Calcium 9.4 D (8.4-10.2) mg/dL Total Bilirubin 0.5 (0.0-1.0) mg/dL Direct Bilirubin 0.2 (0.0-0.5) mg/dL AST 15 (5-31) U/L ALT 15 (0-31) U/L Alkaline Phosphatase 60 (39-117) U/L Total Protein 8.0 (6.5-8.0) g/dL Albumin 4.5 (3.5-5.0) g/dL Lipase 41 (8-78) U/L Urine Color Yellow Urine Appearance Clear Urine pH 5.5 (5.0-9.0) Ur Specific [place] 1.025 (1.005-1.025) Urine Protein Negative (Neg-Trace) mg/dL Urine Glucose (UA) Negative (Negative) mg/dL Urine Ketones Negative (Negative) mg/dL Urine Blood Negative (Negative) Urine Nitrite Negative (Negative) Ur Leukocyte Esterase Small (1+) H (Negative) Urine RBC 0-2 (0-2) /HPF Urine WBC 6-10 H (0-5) /HPF Ur Squamous Epith Cells 3-5 (0-2) /HPF Urine Bacteria Trace (None Seen) Hyaline Casts 0-2 (0-2) /LPF Urine Test NEGATIVE (NEGATIVE) Hepatitis A IgM Ab Nonreactive (Nonreactive) Hep Bs Antigen Negative (Negative) Hep Bs Antibody REACTIVE (Nonreactive) Hep B Core Total Ab Nonreactive (Nonreactive) Hepatitis C Ab (EIA) Nonreactive (Nonreactive) Independent Interpretation I performed an independent interpretation of an: Ultrasound (normal ) Radiology Impression Discussion of test interpretation with radiology: I have reviewed the radiologist's reading. External Record Review External record reviewed: Inpatient record Discharge Plan Discharge Clinical Impression: Cystitis Abdominal pain Qualifiers: Abdominal location: right upper quadrant Qualified Code(s): R10.11 - Right upper quadrant pain Patient Disposition: Home, Self-Care Instructions: Urinary Tract Infection in Women (ED), Abdominal Pain (ED) Additional Instructions: still pending is gonorrhea and chlamydia we will call you if positive. return for fevers, worsening pain, vomiting, inability to have bowel movement or pass gas. Uterus: The uterus is anteverted and measures 8.6 x 4.0 x 5.4 cm. Uterine echotexture is heterogeneous. No discrete fibroid. The double wall endometrial thickness is 10 mm. Adnexa: Both ovaries are visualized. There is normal color flow to the adnexa. There is no ovarian torsion. There is no pelvic ascites or fluid collection. Right ovary measures 3.4 x 3.5 x 3.8 cm. Volume is 23.7 mL. Left ovary measures 3.0 x 1.7 x 2.2 cm. Volume is 5.9 mL. US/US pelvic and transvaginal IMPRESSION: There is no sonographic abnormality to explain the patient's pelvic pain. No evidence of ovarian torsion. FINDINGS: PANCREAS: Tail obscured. LIVER: The liver is normal in size. The liver contour is normal. Parenchymal echogenicity is normal. No focal hepatic lesion. There is no intrahepatic biliary duct dilatation seen. GALLBLADDER: The gallbladder is physiologically distended without evidence of stones, sludge, polyps, wall thickening or pericholecystic fluid. COMMON BILE DUCT: Normal in caliber measuring 0.3 cm in diameter. RIGHT KIDNEY: No hydronephrosis. No renal calculi or focal parenchymal lesions. The kidney measures 10.6 cm in maximum dimension. FREE FLUID: None. US/US abdomen limited IMPRESSION: No acute abnormality. Prescriptions: New nitrofurantoin monohyd/m-cryst [Macrobid] 100 mg capsule 100 mg PO Q12H 5 Days Qty: 10 0RF Rx Instructions: must administer with a meal/food No Action oxycodone-acetaminophen [Percocet] 5-325 mg tablet 1 tab PO Q4-6H PRN (Reason: pain) Qty: 30 0RF Rx Instructions: Partial Fill upon patient request. ibuprofen 600 mg tablet 600 mg PO Q6H PRN (Reason: pain) Qty: 30 0RF
[2023-05-07 12:30] LABS: HBS Num1 23.78 mIU/mL (0-7.99); HBc Num1 0.13 S/CO (0.00-0.79); HBsAGNum1 0.37 S/CO (0.00-0.99); Hepatitis A Antibody IgM 0.15 Index (0-0.79); Hepatitis B Core Antibody Nonreactive (Nonreactive); Hepatitis B Surface Antigen Negative (Negative); ~HepC Num1 0.07 S/CO (0.00-0.79); ~Hepatitis A Antibody IgM Nonreactive (Nonreactive); ~Hepatitis B Surface Antibody REACTIVE (Nonreactive); ~Hepatitis C Antibody Nonreactive (Nonreactive)
[2023-05-07 16:47] LABS: CT PCR NOT DETECTED (Not Detect.); NG PCR NOT DETECTED (Not Detect.)
== END 2023-05-07 14:22 | disposition home or self-care (01) ==
PROVIDERS: Emergency Provider Emergency Medicine
DX: N30.90 Cystitis, unspecified without hematuria (principal); R10.11 Right upper quadrant pain; R30.0 Dysuria; R10.2 Pelvic and perineal pain; Z79.899 Other long term (current) drug therapy; Z87.891 Personal history of nicotine dependence
CPT/HCPCS: 0353U; 36415; 76705; 76830; 76856; 80048; 80076; 81001; 81003; 81025; 83690; 85025; 86704; 86706; 86709; 86803; 87086; 87340; 93975; 99284